=== PATIENT | male | born 1960 | race Hispanic/Latino ===

== ENCOUNTER 2017-03-20 10:56 | Outpatient (CLI) | payer BC ==
[2017-03-20 11:43] LABS: #Basophils 0.1 thou/uL (0.0-0.2); #Eosinphils 0.3 thou/uL (0.0-0.7); #Lymphocytes 2.7 thou/uL (1.20-3.40); #Neutrophils 6.2 thou/uL (1.40-6.50); %Basophils 0.9 % (0.0-1.0); %Eosinophils 2.9 % (0.0-10.0); %Lymphocytes 25.8 % (21.0-51.0); Hematocrit 47.3 % (42.0-52.0); Mean Platelet Volume 6.8 fL (7.4-10.4); Red Blood Cell (RBC) Count 4.74 mill/uL (4.70-6.10); White Blood Cell (WBC) Count 10.3 thou/uL (4.8-10.8)
[2017-03-20 11:45] LABS: Hemoglobin A1c 5.3 % (4.0-6.0)
--- NOTE | 2017-03-20 11:50 | RAD ---
RADIOGRAPH OF CHEST 2 VIEWS: INDICATION: Preoperative assessment. FINDINGS: There is no consolidation, effusion, or pneumothorax. The cardiac silhouette is within normal limits of size. IMPRESSION: No focal consolidation. POS: TRISTAH
[2017-03-20 12:08] LABS: ALT (SGPT) 25 U/L (8-55); AST (SGOT) 21 U/L (5-34); Alkaline Phosphatase 52 U/L (40-150); Anion Gap 13 mmol/L (10-20); BUN (Urea Nitrogen) 13 mg/dL (8.4-25.7); Bilirubin, Direct 0.3 mg/dL (0.1-0.3); Bilirubin, Total 0.7 mg/dL (0.2-1.2); Calc. Creatinine Clearance 0 mL/min (70-130); Calcium 9.1 mg/dL (7.8-10.44); Carbon Dioxide 24 mmol/L (22-29); Chloride 104 mmol/L (98-107); Estimated GFR-MDRD Greater than 90; Globulin 3.3 g/dL (2.4-3.5); Protein, Total 7.2 g/dL (6.0-8.3)
--- NOTE | 2017-03-21 10:04 | EKG ---
Test Reason : Blood Pressure : / mmHG Vent. Rate : 067 BPM Atrial Rate : 067 BPM P-R Int : 186 ms QRS Dur : 094 ms QT Int : 392 ms P-R-T Axes : -01 -50 038 degrees QTc Int : 414 ms Poor data quality, interpretation may be adversely affected Normal sinus rhythm Pulmonary disease pattern Left anterior fascicular block Nonspecific T wave abnormality Abnormal ECG When compared with ECG of 12-OCT-2012 13:51, No significant change was found Confirmed by SHERI FAITH, SNitish ([id number]) on 03/21/2017 10:03:53 AM Referred By: SAMMY Confirmed By:DR. Teagan WADE MD
== END 2017-03-20 10:57 | disposition home or self-care (01) ==
LOC: LABBT 10:56
PROVIDERS: ATTEND Surgery
DX: Z01.818 Encounter for other preprocedural examination (principal); E66.01 Morbid (severe) obesity due to excess calories
CPT/HCPCS: 71020; 80053; 80076; 83036; 85025; 93005; 93010

== ENCOUNTER 2017-04-06 05:57 | Inpatient (IN) | payer BC ==
[2017-03-20 11:29] VITALS: BMI 58.7
[2017-04-06] MEDS ORDERED: Fentanyl 250 MCG/5 ML VIAL ONE (06:11)
[2017-04-06] MEDS ORDERED: Fentanyl 100 MCG/2 ML VIAL ONE ×3 (06:11→09:59)
[2017-04-06] MEDS ORDERED: Midazolam HCl 2 mg/2 ml Vial ONE (06:11)
[2017-04-06] MEDS ORDERED: Heparin 5,000 UNITS/ML VIAL ONE (06:43)
[2017-04-06] MEDS ORDERED: CEFAZOLIN/Water 2 GM/20 ML SYRINGE ONE (06:43)
--- NOTE | 2017-04-06 07:07 | HP ---
CHIEF COMPLAINT: Morbid obesity. HISTORY: The patient is a 56-year-old male who has been overweight for many years and attempted [facility] weight loss programs without success. He is here for sleeve gastrectomy. PAST MEDICAL HISTORY: Significant for hyperlipidemia. PAST SURGICAL HISTORY: Knee arthroscopy, right total knee replacement, left total knee replacement. MEDICATIONS: Celebrex. ALLERGIES: To ASPIRIN and ARTHROTEC. FAMILY HISTORY: Father of heart disease and stroke. Mother of hypertension and cancer. SOCIAL HISTORY: He is . No tobacco, occasional alcohol. PHYSICAL EXAMINATION: VITAL SIGNS: Height 5 foot 8, weight 393, body mass index 59.75. Blood pressure 143/89, pulse 80. GENERAL: Well-developed, well-nourished male in no apparent distress. HEENT: Unremarkable. LUNGS: Clear. HEART: Regular rate and rhythm. ABDOMEN: Soft, nontender, good bowel sounds. EXTREMITIES: Good pulses. No pedal edema. ASSESSMENT: Morbid obesity with comorbidities. PLAN: Laparoscopic sleeve gastrectomy. CONSENT: I have discussed the planned procedure as well as risk of bleeding, infection, injury to es ophagus, spleen, loops of bowel, need to open, leakage from staple line. He understands and gives in formed consent.
[2017-04-06] MEDS ORDERED: Bupivacaine/Epinephrine 0.25% 30 ML VIAL ONE (07:43)
[2017-04-06] MEDS ORDERED: Promethazine HCl 25 MG/ML VIAL SLOW IVP PRN (08:09)
[2017-04-06] MEDS ORDERED: HYDROmorphone 2 MG/ML VIAL SLOW IVP PRN (08:09)
[2017-04-06] MEDS ORDERED: diphenhydrAMINE 50 MG/ML VIAL IVP PRN ×2 (08:09→08:57)
[2017-04-06] MEDS ORDERED: Zolpidem Tartrate 5 MG TAB PO PRN (08:09)
[2017-04-06] MEDS ORDERED: Promethazine HCl 25 MG/ML VIAL IM PRN ×2 (08:09→08:57)
[2017-04-06] MEDS ORDERED: Fentanyl 5000 MCG/250 ML CADD IVPB PRN (08:09)
[2017-04-06] MEDS ORDERED: Naloxone HCl 0.4 mg/ml Vial IV PRN (08:09)
[2017-04-06] MEDS ORDERED: Meperidine HCl/PF 25 MG/ML VIAL SLOW IVP PRN (08:09)
[2017-04-06] MEDS ORDERED: Morphine Sulfate 2 MG/ML SYRINGE SLOW IVP PRN (08:09)
[2017-04-06] MEDS ORDERED: Ondansetron HCl/PF 4 MG/2 ML Vial IVP PRN ×2 (08:09→08:57)
[2017-04-06] MEDS ORDERED: diphenhydrAMINE 50 MG/ML VIAL IM PRN (08:09)
[2017-04-06] MEDS ORDERED: diphenhydrAMINE 25 MG CAP PO PRN (08:09)
[2017-04-06] MEDS ORDERED: Communication Order-Pharmacy FS SCH (08:15)
[2017-04-06] MEDS ORDERED: Dextrose 5% in Water 1,000 ML IV PRN (08:57)
[2017-04-06] MEDS ORDERED: Dextrose 50% Abboject 50 ML SYRINGE SLOW IVP PRN (08:57)
[2017-04-06] MEDS ORDERED: Hydrocodone-Acetamin 15 ML UDCUP PO PRN (08:57)
[2017-04-06] MEDS ORDERED: Enoxaparin Sodium 40 MG/0.4 ML SYRINGE SC SCH (09:00)
[2017-04-06] MEDS ORDERED: Fentanyl 20 MCG/ML 250 ML ONE (09:08)
--- NOTE | 2017-04-06 09:25 | OP ---
DATE OF PROCEDURE: 04/06/2017 PREOPERATIVE DIAGNOSIS: Morbid obesity. SURGEON: Javi Alonso M.D. PROCEDURE: Laparoscopic sleeve gastrectomy, esophagogastroscopy. INDICATIONS: A 56-year-old male, morbidly obese, who has attempted multiple weight loss programs wit hout success. FINDINGS: A 38 Serbian bougie used. PROCEDURE IN DETAIL: After informed consent was obtained, the patient was taken to the operating loree m and given general endotracheal anesthesia. He was placed in the supine position and his abdomen wa s prepped and draped in the usual fashion. Local anesthesia infiltrated subcutaneously and deep. A 12 mm incision was performed approximately 8 inches below the xiphoid slightly to the left. Veress n eedle inserted. Drop test performed. Pneumoperitoneum was created to a volume of 2 liters of carbon dioxide. Utilizing a bladeless 12 mm trocar and 0 degree laparoscope direct visual entry in the abd ominal cavity was performed. Pneumoperitoneum was created to a pressure of 15 mmHg and the patient p laced in steep reverse Trendelenburg position. Nathansen liver retractor inserted. Left lobe of laura er retracted superiorly. Pylorus identified, a 12 mm port placed on the right beneath it and two 12s placed left subcostal. The omentum was taken off the greater curvature 5 cm from the pylorus utiliz ing the LigaSure. Short gastrics divided with the LigaSure and the left crura defined with the LigaS ure. A 38-Serbian bougie inserted directed into the antrum. A linear 60 mm green load stapler used t o divide the antrum to the bougie, gold load along the bougie, and a series of blues through the angl e of His. Intraoperative endoscopy was performed. The video endoscope inserted under direct vision and advanced into the sleeve. Staple line inspected. There was no bleeding. Staple line then teste d by inflating the new stomach with pressurized air under water. There was no air leak. Stomach dec ompressed. Scope removed. The remnant stomach removed from the abdomen through the left lateral por t site. The fascia closed with 0 Vicryl suture and the GraNee needle. Trocars and retractors remove d. The skin closed with interrupted 4-0 Rapide. Dermabond applied. The patient tolerated the proce dure well and transferred to recovery in good condition. Sponge and needle count verified correct x2 .
[2017-04-06] MEDS ORDERED: Promethazine HCl 25 MG/ML VIAL ONE (09:27)
[2017-04-06] MEDS: D5 1/2 NS w/20 mEq KCL 1,000 ML IV SCH ×4 (12:57→21:15)
[2017-04-06] MEDS: hydrALAZINE 20 MG/ML VIAL SLOW IVP PRN ×2 (13:31→17:30)
[2017-04-06] MEDS: CEFAZOLIN/Water 2 GM/20 ML SYRINGE SLOW IVP SCH ×2 (15:59→23:39)
[2017-04-06] MEDS: Pantoprazole 40 MG VIAL IVP SCH (16:05)
[2017-04-06] MEDS ORDERED: Propofol 200 MG/20 ML VIAL ONE (16:21)
[2017-04-06] MEDS ORDERED: Lidocaine 1% PF 5 ML VIAL ONE (16:21)
[2017-04-06] MEDS ORDERED: Glycopyrrolate 0.2 MG/ML 5 ML SYRINGE ONE (16:21)
[2017-04-06] MEDS ORDERED: Ondansetron HCl/PF 4 MG/2 ML Vial ONE (16:21)
[2017-04-06] MEDS ORDERED: Dexamethasone 20 MG/5 ML VIAL ONE (16:21)
[2017-04-07 04:43] LABS: #Lymphocytes 1.3 thou/uL (1.20-3.40); #Neutrophils 9.1 thou/uL (1.40-6.50); %Basophils 0.1 % (0.0-1.0); %Eosinophils 0.3 % (0.0-10.0); %Lymphocytes 11.2 % (21.0-51.0); %Monocytes 8.5 % (0.0-10.0); Mean Platelet Volume 7.8 fL (7.4-10.4); White Blood Cell (WBC) Count 11.4 thou/uL (4.8-10.8)
[2017-04-07 05:06] LABS: Anion Gap 10 mmol/L (10-20); BUN (Urea Nitrogen) 6 mg/dL (8.4-25.7); Calc. Creatinine Clearance 274 mL/min (70-130); Calcium 8.9 mg/dL (7.8-10.44); Carbon Dioxide 26 mmol/L (22-29); Chloride 104 mmol/L (98-107); Estimated GFR-MDRD Greater than 90
[2017-04-07] MEDS: D5 1/2 NS w/20 mEq KCL 1,000 ML IV SCH (05:13)
--- NOTE | 2017-04-07 08:20 | RAD ---
CONTRAST SWALLOW UPPER GI SERIES SINGLE COLUMN: Date: 04-07-17 History: 56-year-old male immediately status post bariatric surgery. Technique: Patient swallowed 15 ml of Gastrografin upright. Brief, intermittent fluoroscopy performed. FINDINGS: There is a slight delay in the contrast material entering the narrowed gastric channel from the esoph gisela. Once in the gastric channel, the contrast material exits into the duodenum immediately. There i s no leakage or high grade obstruction. IMPRESSION: 1. Immediately status post vertical sleeve gastrectomy. 2. No complications. POS: ERNA
[2017-04-07] MEDS: Pantoprazole 40 MG VIAL IVP SCH (08:25)
[2017-04-07] MEDS ORDERED: Enoxaparin Sodium 40 MG/0.4 ML SYRINGE SC SCH (09:00)
--- NOTE | 2017-04-07 13:53 | DIS ---
DISCHARGE DIAGNOSIS: Morbid obesity. PROCEDURES DURING ADMISSION: Laparoscopic sleeve gastrectomy, esophagogastroscopy, postoperative Gas trografin swallow. HOSPITAL COURSE: The patient was admitted, taken to the operating room where he underwent sleeve gas trectomy. Postoperatively, he is doing well, swallow was fine, started on liquids. He is tolerating well. Pain is controlled. He is discharged home in good condition on [place], hydrocodone elixir and Zofran. He will follow up with me in 2 weeks.
[2017-04-07] MEDS ORDERED: Iopamidol 300 61% 30 ML VIAL ONE (14:10)
[2017-04-07 14:59] VITALS: BP 155/86; TEMP 98
== END 2017-04-07 14:53 | disposition home or self-care (01) | DRG 621 ==
LOC: SDC 05:57 → SURG A 09:21 → EDSTATUS 11:00
PROVIDERS: ADMIT Surgery; ATTEND Surgery
PROC: 0DB64Z3 Excision of Stomach, Percutaneous Endoscopic Approach, Vertical (ICD-10-PCS; principal; 2017-04-06)
DX: E66.01 Morbid (severe) obesity due to excess calories (principal); Z88.8 Allergy status to other drugs, medicaments and biological substances; Z96.653 Presence of artificial knee joint, bilateral; Z82.49 Family history of ischemic heart disease and other diseases of the circulatory system
CPT/HCPCS: 36415; 74241; 80048; 85025; 88307; 88312; 94760; C9113; J0131; J0360; J1100; J1644; J1650; J2001; J2250; J2405; J2550; J2704; J3010

== ENCOUNTER 2022-07-11 12:19 | Outpatient (CLI) | payer BC | END 2022-07-11 12:20 | disposition home or self-care (01) | LOC: TBSIIMAG 12:19 | PROVIDERS: ATTEND Family Medicine | DX: G89.4 Chronic pain syndrome (principal); M48.062 Spinal stenosis, lumbar region with neurogenic claudication; M47.816 Spondylosis without myelopathy or radiculopathy, lumbar region; M25.78 Osteophyte, vertebrae; M51.35 Other intervertebral disc degeneration, thoracolumbar region; M48.05 Spinal stenosis, thoracolumbar region | CPT/HCPCS: 72100; 72148 ==